=== PATIENT | male | born 1995 ===

== ENCOUNTER 2022-09-06 09:49 | Emergency (ER) | payer OTHER ==
[~2022-09-06] VITALS: Ht 190.5 cm; Wt 77.1 kg
[2022-09-06 10:45] VITALS: BP 134/87
[2022-09-06] MEDS ORDERED: ONDA4ODT MM (10:50)
[2022-09-06] MEDS ORDERED: HYDCOR2.5C PR (10:50)
== END 2022-09-06 11:08 | disposition home or self-care (01) ==
LOC: ER 09:49
DX: B34.9 Viral infection, unspecified (principal); K64.5 Perianal venous thrombosis; Z20.822 Contact with and (suspected) exposure to COVID-19
CPT/HCPCS: 99283; A9270

== ENCOUNTER 2023-10-15 11:56 | Emergency (ER) | payer OTHER ==
[~2023-10-15] VITALS: Ht 190.5 cm; Wt 77.1 kg
[~2023-10-15 11:56] MED LIST: HYDCOR2.5C PR; ONDA4ODT MM
[2023-10-15 12:23] LABS: BASOPHILS ABSOLUTE AUTO 0.07 K/mm3 (0.00-0.23); BASOPHILS PERCENT AUTO 1 % (0-2); EOSINOPHILS ABSOLUTE AUTO 0.57 K/mm3 (0.00-0.68); EOSINOPHILS PERCENT AUTO 6 % (0-6); Hematocrit 47.2 % (37.0-53.0); Hemoglobin 15.5 g/dL (13.5-17.5); IMMATURE GRAN ABSOLUTE AUTO 0.02 K/mm3 (0.00-0.10); IMMATURE GRAN PERCENT AUTO 0 % (0-1); LYMPHOCYTES ABSOLUTE AUTO 2.83 K/mm3 (0.84-5.20); LYMPHOCYTES PERCENT AUTO 32 % (21-46); MONOCYTES ABSOLUTE AUTO 0.65 K/mm3 (0.16-1.47); MONOCYTES PERCENT AUTO 7 % (4-13); Mean Corpuscular HGB 28.7 pg (26.0-34.0); Mean Corpuscular HGB Conc 32.8 g/dL (31.5-36.5); Mean Corpuscular Volume 87 fL (80-100); Mean Platelet Volume 8.9 fL (9.1-12.4); NEUTROPHILS ABSOLUTE AUTO 4.74 K/mm3 (1.96-9.15); NEUTROPHILS PERCENT AUTO 53 % (41-73); Platelet Count 256 K/mm3 (150-400); RDW Coefficient Variation 14.8 % (11.7-14.2); RDW Standard Deviation 47.9 fL (35.1-46.3); White Blood Cell Count 8.88 K/mm3 (4.00-11.30)
[2023-10-15 13:22] LABS: Albumin, Blood 3.8 g/dL (3.4-5.0); Bilirubin, Total 0.6 mg/dL (0.1-1.0); Creatinine, Blood 0.76 mg/dL (0.60-1.20); Potassium, Blood 3.9 mmol/L (3.5-5.5); Total Protein, Blood 7.8 g/dL (6.4-8.2)
[2023-10-15 15:09] VITALS: BP 119/80
[2023-10-15] MEDS ORDERED: Lactated Ringer's 1,000 ML IV ONE (15:50)
[2023-10-15] MEDS ORDERED: ONDA4ODT MM (16:46)
== END 2023-10-15 16:59 | disposition home or self-care (01) ==
LOC: ER 11:56
PROVIDERS: Physician Assistant
DX: K52.9 Noninfective gastroenteritis and colitis, unspecified (principal); K62.5 Hemorrhage of anus and rectum; E86.0 Dehydration; B34.9 Viral infection, unspecified; Z11.52 Encounter for screening for COVID-19
CPT/HCPCS: 80053; 83690; 85025; 96360; 99284-25; J7120